=== PATIENT | female | born 1945 | race Caucasian/White ===

== ENCOUNTER → 2024-10-21 | Outpatient (CLI) | payer OTHER, MEDICAID, SELFPAY ==
--- NOTE | 2024-10-21 09:49 | XR_ITS ---
Examination:Right hip AP, lateral, AP pelvis 3 views Technique: Hip AP lateral, AP pelvis, 3 views Exam date and time:October 21, 2024 1114 hours INDICATIONS: Onset right hip pain beginning 2 weeks ago. FINDINGS: Advanced right hip osteoarthritis No right hip fracture or dislocation Moderate to advanced left hip osteoarthritis Bones of the pelvis intact IMPRESSION: Advanced right hip osteoarthritis.
== END | disposition home or self-care (01) ==
PROVIDERS: PCP Family Medicine; Referring Provider Nurse Practitioner Family; Visit Provider Nurse Practitioner Family
DX: M16.11 Unilateral primary osteoarthritis, right hip (principal)
CPT/HCPCS: 73502